=== PATIENT | female | born 1995 | race Asian ===

== ENCOUNTER 2019-02-01 13:39 | Emergency (ER) | payer OTHER ==
[~2019-02-01] VITALS: Ht 154.9 cm; Wt 59.0 kg
[2019-02-01] MEDS ORDERED: NKM (13:46)
[2019-02-01] MEDS ORDERED: Tetanus/Diptheria/Pertussis IM ONE (14:00)
--- NOTE | 2019-02-01 14:00 | Emergency Room Report ---
History of Present Illness General Chief Complaint: Pain Source: Patient Present Illness HPI 23 year old female no pmhx presents with left arm pain and tingling, as well as left knee pain, worsened with movement, alleviated with rest, severity is mild, described as achy. Patient denies any focal weakness. Patient fell at work and presents for worker's comp evaluation. Allergies: Coded Allergies: CEPHALEXIN (Verified Allergy, Unknown, 02/01/19) Patient History Past Medical History: see triage record Last Menstrual Period: CURRENTLY ON HER PERIOD Reviewed Nursing Documentation: PMH: Agreed; PSxH: Agreed Nursing Documentation-PMH Past Medical History: No History, Except For Hx Asthma: Yes Review of Systems All Other Systems: negative except mentioned in HPI Physical Exam Vital Signs Date Time Temp Pulse Resp B/P (MAP) Pulse Ox O2 Delivery O2 Flow Rate FiO2 02/01/19 13:44 98.1 68 18 122/70 (87) 97 Room Air General Appearance: well appearing, no apparent distress Head: normocephalic, atraumatic ENT: hearing grossly normal, normal voice Neck: full range of motion, supple Respiratory: no respiratory distress, speaking full sentences Musculoskeletal: other - LUE: 2+ radial pulses, radial median ulnar nerve intact motor, patient with tenderness posterior proximal tricep with bruising. Left knee: ant posterior draw neg, abrasions seen, valgus varus stress negative. Neurologic: alert, normal gait Psychiatric: mood/affect normal Skin: no rash Medical Decision Making Diagnostic Impression: Primary Impression: Contusion of left arm Qualified Codes: S40.022A - Contusion of left upper arm, initial encounter Additional Impression: Contusion of left knee Qualified Codes: S80.02XA - Contusion of left knee, initial encounter ER Course 23 year old female presents with contusion of left knee and left arm with continued pain. Patient needs time off from work to recuperate, will provide pain medications Return to work 02/06/2019 Last Vital Signs Date Time Temp Pulse Resp B/P (MAP) Pulse Ox O2 Delivery O2 Flow Rate FiO2 02/01/19 13:44 98.1 68 18 122/70 (87) 97 Room Air Disposition: HOME, SELF-CARE Condition: Stable Scripts Naproxen* (NAPROSYN*) 250 Mg Tablet 250 MG ORAL BID PRN for For Pain, #20 TAB 0 Refills Prov: Tab Everett MD 02/01/19 Referrals: [facility] Donald Anderson. [facility] Departure Forms: Return to Work Return to Work Date: Feb 06, 2019 Patient Instructions: Contusion, [id number], Elbow Contusion Additional Instructions: The patient was provided with discharge instructions, notified to follow-up with a primary care doctor and or specialist in the next 24-48 hours, and to return to the ED if they have worsening of their symptoms. Please note that this report is being documented using [employer] technology. This can lead to erroneous entry secondary to incorrect interpretation by the dictating instrument. Tab Everett MD Feb 01, 2019 14:00
[2019-02-01] MEDS ORDERED: NAPROXEN250 MG ORAL (14:03)
--- NOTE | 2019-02-01 14:15 | NUR ---
ER DISCHARGE NOTE: Patient is cleared to be discharged per ERMD, pt is aox4, on room air, with stable vital signs. pt was given dc and prescription instructions, pt was able to verbalize understanding, pt is able to ambulate with steady gait. pt took all belongings.
[2019-02-01 14:31] VITALS: BP 122/70
[2019-02-01 14:32] VITALS: BP 122/70
== END 2019-02-01 14:32 | disposition home or self-care (01) ==
LOC: EMR 14:00
DX: S40.022A Contusion of left upper arm, initial encounter (principal); S80.02XA Contusion of left knee, initial encounter; J45.909 Unspecified asthma, uncomplicated; Z88.1 Allergy status to other antibiotic agents; Z23 Encounter for immunization; W18.30XA Fall on same level, unspecified, initial encounter; Y92.89 Other specified places as the place of occurrence of the external cause; Y99.0 Civilian activity done for income or pay
CPT/HCPCS: 90471; 90715; 99282